=== PATIENT | female | born 1960 | race Caucasian/White ===

== ENCOUNTER 2019-03-16 18:11 | Outpatient (CLI) | payer BC, SELFPAY ==
--- NOTE | 2019-03-16 | XR_ITS ---
WS: [id number] RIGHT KNEE: 2 VIEW(S) TECHNIQUE: AP and lateral. HISTORY: RIGHT KNEE PAIN COMPARISON: None available. No fracture or dislocation. Mild narrowing of the medial compartment. Limited evaluation of the patella. Probably due to overexpo sure. Joint fluid cannot be excluded. No soft tissue abnormality. XR/XR knee RT 1-2V [id number] IMPRESSION: 1. No fracture identified. 2. Limited evaluation of the patella and the suprapatellar bursa due to poor t echnique and overexposure. 3. Mild narrowing medial compartment.
== END 2019-03-16 18:12 | disposition home or self-care (01) ==
LOC: RADOUTREAD 03-17 11:16
PROVIDERS: Visit Provider Nurse Practitioner Family
DX: Z76.89 Persons encountering health services in other specified circumstances (principal)

== ENCOUNTER 2019-11-18 14:52 | Outpatient (CLI) | payer BC, SELFPAY ==
--- NOTE | 2019-11-18 14:54 | MM_ITS ---
WS: [id number] BILATERAL DIGITAL SCREENING MAMMOGRAPHY WITH CAD CLINICAL INFORMATION: SCREENING HISTORY: Screening mammogram. No current complaints. COMPARISON: February 05, 2018 TECHNIQUE: Bilateral CC and MLO views. FINDINGS: Scattered fibroglandular densities bilaterally. No suspicious focal mass, asymmetry, calcifications, or architectural distortion. No evidence of malignancy. Punctate calcifications. MM/[place] [id number] IMPRESSION: BI-RADS: 2-Benign FOLLOW UP: 1 Year Follow-up Recommend return to annual screening mammography.
== END 2019-11-18 14:53 | disposition home or self-care (01) ==
LOC: RADSHAW 14:52
PROVIDERS: Visit Provider Nurse Practitioner Women's Health
DX: Z12.31 Encounter for screening mammogram for malignant neoplasm of breast (principal)
CPT/HCPCS: 77067

== ENCOUNTER → 2019-11-23 12:42 | Outpatient (BNVA) | payer BC, SELFPAY | DX: Z11.59 Encounter for screening for other viral diseases (principal) | CPT/HCPCS: 87635 ==

== ENCOUNTER → 2020-04-12 08:19 | Outpatient (BNVA) | payer OTHER, SELFPAY | PROVIDERS: Visit Provider Family Medicine | DX: Z13.6 Encounter for screening for cardiovascular disorders (principal); F41.1 Generalized anxiety disorder; R03.0 Elevated blood-pressure reading, without diagnosis of hypertension | CPT/HCPCS: 80053; 80061; 85025 ==

== ENCOUNTER → 2020-05-04 09:20 | Outpatient (BNVA) | payer OTHER, SELFPAY | PROVIDERS: Visit Provider Family Medicine | DX: R53.83 Other fatigue (principal); F41.1 Generalized anxiety disorder; F32.9 Major depressive disorder, single episode, unspecified; Z68.24 Body mass index [BMI] 24.0-24.9, adult | CPT/HCPCS: 84439; 84443 ==